=== PATIENT | female | born 1975 | race American Indian/Alaskan Native ===

== ENCOUNTER 2016-11-24 11:01 | Outpatient (CLI) | payer OTHER ==
--- NOTE | 2016-11-25 14:22 | Mammography Report ---
BILATERAL DIGITAL SCREENING MAMMOGRAM with CAD: 11/24/16 11:01:00 CLINICAL: Routine screening. COMPARISON:09/21/15 FINDINGS: The breasts are heterogeneously dense, which may obscure small masses. No mass, architectural distortion or suspicious calcifications. IMPRESSION: No mammographic evidence of malignancy. BI-RADS CATEGORY: 1 - - Negative RECOMMENDATION: Routine mammographic screening in one year. COMMENT: Patient follow-up letters are generated by our [employer] application. The
== END 2016-11-24 11:02 | disposition home or self-care (01) ==
LOC: SPVWC 11:01
PROVIDERS: ATTEND Obstetrics & Gynecology
DX: Z12.31 Encounter for screening mammogram for malignant neoplasm of breast (principal)
CPT/HCPCS: 77067; G0202

== ENCOUNTER 2017-11-30 13:45 | Outpatient (CLI) | payer OTHER ==
--- NOTE | 2017-12-01 16:22 | Mammography Report ---
BILATERAL DIGITAL SCREENING MAMMOGRAM with CAD: 11/30/17 13:45:00 CLINICAL: Routine screening. COMPARISON:11/24/16 FINDINGS: The breasts are heterogeneously dense, which may obscure small masses. A right posterior asymmetry on the MLO view requires additional imaging.No architectural distortion or suspicious calcifications.The left breast is negative. IMPRESSION: Right asymmetry requiring further workup. BI-RADS CATEGORY: 0 -- Additional Imaging Evaluation Required RECOMMENDATION: Recall for right exaggerated CC and spot magnification right MLO views and right breast ultrasound if needed. ACR BI-RADS MAMMOGRAPHIC CODES: 0 = Needs additional imaging evaluation; 1 = Negative; 2 = Benign; 3 = Probably benign; 4 = Suspicious; 5 = Malignant; 6 = Known biopsy-proven malignancy COMMENT: 1. Dense breast tissue, i.e., adenosis, fibrocystic changes, etc., may obscure an underlying neoplasm. 2. Approximately 10% of cancers are not detected with mammography. 3. A negative mammography report should not delay biopsy if a clinically suspicious mass is present. COMMENT: Patient follow-up letters are generated via our [employer] application.
== END 2017-11-30 13:46 | disposition home or self-care (01) ==
LOC: SPVWC 13:45
PROVIDERS: ATTEND Obstetrics & Gynecology
DX: Z12.31 Encounter for screening mammogram for malignant neoplasm of breast (principal)
CPT/HCPCS: 77067

== ENCOUNTER 2018-02-23 10:20 | Outpatient (CLI) | payer OTHER ==
--- NOTE | 2018-02-23 11:34 | Ultrasound Report ---
Right mammogram and right breast ultrasound: Call back for right asymmetry. Additional spot compression CC and MLO imaging confirms the presence of an asymmetric nodule in the posterior lateral right breast. The margins are relatively circumscribed. The nodule measures 8 mm. Review of prior mammograms demonstrates that in 2014 this nodule was visible in the MLO projection and appears unchanged. Prior to review of mammography right breast ultrasound was performed for evaluation of the nodule. An irregular shaped hypoechogenic nodule is identified in the 9:00 location 4 cm from the nipple. This does not correlate with the mammogram nodule. It measures 5.2 mm in greatest dimension. A prior ultrasound in the same region in 2014 did not show this finding. No other findings. Impressions: 1. Stable mammographic nodule. 2. The ultrasound findings is questionable cystic. Recommendation: Ultrasound-guided aspiration of questionably cystic nodule. The findings recommendations have been discussed with the patient. BI-RADS CATEGORY: 4 = Suspicious ACR BI-RADS MAMMOGRAPHIC CODES: 0 = Needs additional imaging evaluation; 1 = Negative; 2 = Benign; 3 = Probably benign; 4 = Suspicious; 5 = Malignant; 6 = Known biopsy-proven malignancy COMMENT: 1. Dense breast tissue, i.e., adenosis, fibrocystic changes, etc., may obscure an underlying neoplasm. 2. Approximately 10% of cancers are not detected with mammography. 3. A negative mammography report should not delay biopsy if a clinically suspicious mass is present.
== END 2018-02-23 10:21 | disposition home or self-care (01) ==
LOC: SPVWC 10:20
PROVIDERS: ATTEND Obstetrics & Gynecology
DX: N64.2 Atrophy of breast (principal); N63.10 Unspecified lump in the right breast, unspecified quadrant; N63.20 Unspecified lump in the left breast, unspecified quadrant

== ENCOUNTER 2018-03-23 09:17 | Outpatient (CLI) | payer OTHER ==
--- NOTE | 2018-03-23 12:23 | Ultrasound Report ---
Right breast ultrasound: The patient presents for aspiration of a hypoechoic area in the non-o'clock location 4 cm from the nipple identified on recent ultrasound on February 23. Imaging of the area today however would appear did indicate that this finding is related to the ductal system and does not appear to represent a discrete finding. Impressions: Probably benign dilatation of the ductal system. Recommendation: Repeat ultrasound in 6 months to reevaluate for any change. This has been explained to the patient. BI-RADS CATEGORY: 3 = Probably benign ACR BI-RADS MAMMOGRAPHIC CODES: 0 = Needs additional imaging evaluation; 1 = Negative; 2 = Benign; 3 = Probably benign; 4 = Suspicious; 5 = Malignant; 6 = Known biopsy-proven malignancy COMMENT: 1. Dense breast tissue, i.e., adenosis, fibrocystic changes, etc., may obscure an underlying neoplasm. 2. Approximately 10% of cancers are not detected with mammography. 3. A negative mammography report should not delay biopsy if a clinically suspicious mass is present.
== END 2018-03-23 09:18 | disposition home or self-care (01) ==
LOC: SPVWC 09:17
PROVIDERS: ATTEND Obstetrics & Gynecology
DX: N63.10 Unspecified lump in the right breast, unspecified quadrant (principal)

== ENCOUNTER 2020-08-06 12:37 | Outpatient (CLI) | payer OTHER ==
--- NOTE | 2020-08-06 15:25 | Mammography Report ---
DIGITAL SCREENING MAMMOGRAM WITH CAD, 08/06/2020 CLINICAL INFORMATION / INDICATION: Routine screening mammography. TECHNIQUE: Digital bilateral 2D mammography was obtained in the craniocaudal and mediolateral obliqu e projections. This examination was interpreted with the benefit of Computer-Aided Detection analysis . COMPARISON: 02/23/2018, 11/30/2017, 11/24/2016 FINDINGS: Breast Density: The breasts are heterogeneously dense, which may obscure small masses. No dominant mass, suspicious calcifications, or architectural distortion in either breast. IMPRESSION: No mammographic evidence of malignancy. Follow up recommendation: Routine yearly BI-RADS Category 1: Negative. A "normal" or negative report should not discourage follow up or biopsy of a clinically significant f inding. A written summary of these findings will be mailed to the patient. The patient will be entered into a mammography reporting system which will generate a reminder letter for the patient's next appointmen t at the appropriate interval. The [employer] recommends yearly mammograms starting at age 40 and continuing as l brandon as a woman is in good health. Breast MRI is recommended for women with an approximate 20-25% or greater lifetime risk of breast cancer, including women with a strong family history of breast or ova sonal cancer or who have been treated for Hodgkin's disease. Signer Name: Anil Guzman MD Signed: 08/06/2020 3:21 PM Workstation Name: [id number]
== END 2020-08-06 12:38 | disposition home or self-care (01) ==
LOC: SPVWC 12:37
PROVIDERS: ATTEND Obstetrics & Gynecology
DX: Z12.31 Encounter for screening mammogram for malignant neoplasm of breast (principal)
CPT/HCPCS: 77067